=== PATIENT | female | born 1970 | race Caucasian/White ===

== ENCOUNTER 2020-07-10 17:49 | Inpatient (IN) | payer OTHER ==
[~2020-07-10] VITALS: Ht 167.6 cm; Wt 89.2 kg
[~2020-07-10 17:49] MED LIST: CYCL10 PO; GABA800 PO; HYDPAM50 PO; Percocet 7.5-31 EACH PO
[2020-07-10 18:05] LABS: PCO2 Venous 55.6 mmHg (38-42); PO2 Venous 64.2 mmHg (38-42); pH Blood Venous 7.37 (7.34-7.37)
[2020-07-10 18:17] LABS: BASOPHILS ABSOLUTE AUTO 0.08 K/mm3 (0.00-0.23); BASOPHILS PERCENT AUTO 1 % (0-2); EOSINOPHILS ABSOLUTE AUTO 0.17 K/mm3 (0.00-0.68); EOSINOPHILS PERCENT AUTO 1 % (0-6); Hematocrit 46.4 % (33.0-51.0); Hemoglobin 15.5 g/dL (11.5-16.0); IMMATURE GRAN ABSOLUTE AUTO 0.13 K/mm3 (0.00-0.10); IMMATURE GRAN PERCENT AUTO 1 % (0-1); LYMPHOCYTES ABSOLUTE AUTO 3.32 K/mm3 (0.84-5.20); LYMPHOCYTES PERCENT AUTO 28 % (21-46); MONOCYTES ABSOLUTE AUTO 0.88 K/mm3 (0.16-1.47); MONOCYTES PERCENT AUTO 7 % (4-13); Mean Corpuscular HGB 32.8 pg (26.0-34.0); Mean Corpuscular HGB Conc 33.4 g/dL (31.5-36.5); Mean Corpuscular Volume 98 fL (80-100); Mean Platelet Volume 9.8 fL (9.1-12.4); NEUTROPHILS ABSOLUTE AUTO 7.51 K/mm3 (1.96-9.15); NEUTROPHILS PERCENT AUTO 62 % (41-73); Platelet Count 233 K/mm3 (150-400); RDW Standard Deviation 46.8 fL (35.1-46.3); Red Blood Cell Count 4.73 M/mm3 (3.80-5.20); White Blood Cell Count 12.09 K/mm3 (4.00-11.30)
[2020-07-10 18:37] LABS: Alanine Aminotransfer (ALT/SGP 113 U/L (12-78); Albumin, Blood 3.8 g/dL (3.4-5.0); Albumin/Globulin Ratio 0.8 (0.8-1.8); Alk Phos 228 U/L (50-136); Anion Gap 2 mmol/L (6-16); Aspartate Aminotrans (AST/SGOT 84 U/L (12-37); Bilirubin, Total 0.4 mg/dL (0.1-1.0); Blood Urea Nitrogen 9 mg/dL (8-24); CO2, Blood 31 mmol/L (21-32); Calcium, Blood 9.1 mg/dL (8.5-10.1); Chloride, Blood 101 mmol/L (98-108); Creatinine, Blood 0.75 mg/dL (0.40-1.00); Globulin, Blood 4.8 g/dL (2.2-4.0); Glomerular Filtration Rate >60 (60-); Glucose, Blood 97 mg/dL (70-99); Potassium, Blood 4.2 mmol/L (3.5-5.5); Sodium, Blood 134 mmol/L (136-145); Total Protein, Blood 8.6 g/dL (6.4-8.2)
[2020-07-10 22:08] LABS: U Amphetamine Screen DETECTED; U Barbituate Screen Not Detected; U Benzodiazapine Screen DETECTED; U Buprenorphine Screen Not Detected; U Cannabinoids Screen Not Detected; U Cocaine Screen Not Detected; U Methadone Screen Not Detected; U Methamphetamine Screen DETECTED; U Opiates Screen Not Detected; U Oxycodone Screen DETECTED; U Phencyclidine Screen Not Detected; U Propoxyphene Screen Not Detected
[2020-07-11] MEDS ORDERED: OXYC15ER PO (00:36)
[2020-07-11 03:47] LABS: BASOPHILS ABSOLUTE AUTO 0.03 K/mm3 (0.00-0.23); BASOPHILS PERCENT AUTO 0 % (0-2); EOSINOPHILS PERCENT AUTO 0 % (0-6); Hematocrit 44.4 % (33.0-51.0); Hemoglobin 14.8 g/dL (11.5-16.0); IMMATURE GRAN ABSOLUTE AUTO 0.18 K/mm3 (0.00-0.10); IMMATURE GRAN PERCENT AUTO 2 % (0-1); LYMPHOCYTES ABSOLUTE AUTO 1.24 K/mm3 (0.84-5.20); LYMPHOCYTES PERCENT AUTO 13 % (21-46); MONOCYTES ABSOLUTE AUTO 0.11 K/mm3 (0.16-1.47); MONOCYTES PERCENT AUTO 1 % (4-13); Mean Corpuscular HGB 32.4 pg (26.0-34.0); Mean Corpuscular HGB Conc 33.3 g/dL (31.5-36.5); Mean Corpuscular Volume 97 fL (80-100); Mean Platelet Volume 10.1 fL (9.1-12.4); NEUTROPHILS ABSOLUTE AUTO 8.15 K/mm3 (1.96-9.15); NEUTROPHILS PERCENT AUTO 84 % (41-73); Platelet Count 222 K/mm3 (150-400); RDW Standard Deviation 46.7 fL (35.1-46.3); Red Blood Cell Count 4.57 M/mm3 (3.80-5.20); White Blood Cell Count 9.71 K/mm3 (4.00-11.30)
[2020-07-11 04:05] LABS: Alanine Aminotransfer (ALT/SGP 102 U/L (12-78); Albumin, Blood 3.7 g/dL (3.4-5.0); Albumin/Globulin Ratio 0.8 (0.8-1.8); Alk Phos 205 U/L (50-136); Anion Gap 4 mmol/L (6-16); Aspartate Aminotrans (AST/SGOT 52 U/L (12-37); Bilirubin, Total 0.3 mg/dL (0.1-1.0); Blood Urea Nitrogen 12 mg/dL (8-24); Bun/Creatinine Ratio 15.8 (12.0-20.0); CO2, Blood 34 mmol/L (21-32); Calcium, Blood 8.8 mg/dL (8.5-10.1); Chloride, Blood 97 mmol/L (98-108); Creatinine, Blood 0.76 mg/dL (0.40-1.00); Globulin, Blood 4.8 g/dL (2.2-4.0); Glomerular Filtration Rate >60 (60-); Glucose, Blood 142 mg/dL (70-99); Sodium, Blood 135 mmol/L (136-145); Total Protein, Blood 8.5 g/dL (6.4-8.2)
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
--- NOTE | 2020-07-11 17:17 | NUR ---
END OF SHIFT SUMMARY: SECURITY TEST ENGINEER WORKING WITH BERNARDINO Brasher ASSUMED CARE FOR PATIENT AROUND 0700. PATIENT IS ALERT AND ORIENTED. SHE HAS BEEN TEARFUL, ANXIOUS, AND AGITATED AT TIMES. 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 PATIENT STATES THAT SHE WAS CLEAN FOR ABOUT 10 YEARS AND SHE RECENTLY RELAPSED AND SHE IS FEELING GUILTY. PATIENT OXYGEN SATURATIONS HAVE BEEN >92% ON RA. PATIENT HAS BEEN MIDLY TACHYCARDIAC TODAY BUT HEART RATE HAS BEEN <110 BPM. SHE HAS BEEN DYSPENIC ON EXERTION BUT STATES THAT SHE IS FEELING BETTER. PATIENT DID HAVE AN ORDER FOR 5MG OF OXYCODONE EVERY 8 HOURS BUT REPORTED THAT SHE TAKES 15MG EVERY 4 HOURS AT HOME. PROVIDER CHANGED ORDER. PATIENT IS RESTING IN BED. CALL LIGHT IS WITHIN REACH AND BED IS IN THE LOWEST POSITION.
--- NOTE | 2020-07-12 04:38 | NUR ---
SHIFT SUMMARY VSS. PATIENT IS ALERT AND ORIENTED. PATIENT BECAME RESTLESS THROUGHOUT THE NIGHT C/O BACK PAIN. PATIENT MEDICATED PER EMAR. SPO2 IN MID 90'S ON 2L VIA NC. NO ACUTE CHANGES OCCURED THROUGHOUT SHIFT. WILL CONTINUE TO MONITOR UNTIL END OF SHIFT.
[2020-07-12] MEDS ORDERED: Acetaminophen325 M1 PO (09:54)
[2020-07-12] MEDS ORDERED: ALBU90OI INH (09:55)
[2020-07-12] MEDS ORDERED: AIRDUO RESPICL1 EAC4 INH (09:57)
[2020-07-12] MEDS ORDERED: IPRAT-ALBUT 0.5-3 ML INH (09:59)
[2020-07-12] MEDS ORDERED: NICO21TP TOP (10:01)
[2020-07-12] MEDS ORDERED: PRED20 PO (10:01)
[2020-07-12] MEDS ORDERED: SPIRIVA RESPIMAT4 G3 INH (10:04)
--- NOTE | 2020-07-12 13:15 | NUR ---
PT DISCHARGED. SHE STATES SHE IS FEELING A LOT BETTER. HER MEDICATION THAT WAS SENT TO PHARMACY AT ADMISSION WAS GIVEN TO HER. THE PATIENT'S FRIEND PICKED HER UP. PT WAS ALERT AND ORIENTED AT DISCHARGE. VERY MINIMAL SHORTNESS OF BREATH WITH EXERTION. PT STATES SHE WILL FOLLOW UP WITH HER PCP. PATIENT VERBALIZED UNDERSTANDING OF INSTRUCTIONS. PT DID NOT HAVE ANY NEW COMPLAINTS AT TIME OF DISCHARGE.
== END 2020-07-12 13:15 | disposition home or self-care (01) | DRG 189 ==
LOC: ER 17:49 → PCU 17:50 → ER 22:45 → PCU 22:45
PROVIDERS: Emergency Medicine; ADMIT Internal Medicine
DX: J96.21 Acute and chronic respiratory failure with hypoxia (principal); J44.1 Chronic obstructive pulmonary disease with (acute) exacerbation; R13.10 Dysphagia, unspecified; Z20.822 Contact with and (suspected) exposure to COVID-19; Z99.81 Dependence on supplemental oxygen; F17.210 Nicotine dependence, cigarettes, uncomplicated; K59.00 Constipation, unspecified; R45.1 Restlessness and agitation; R45.0 Nervousness
CPT/HCPCS: 36415; 71045; 71260; 80053; 82803; 85025; 92610; 93005; 93010; 94640; 94644; 94760; 94762; 96372; 96374; 96375; 96376; 99285-25; A9270; G0378; J1650; J2060; J2930; J7030; Q9967

== ENCOUNTER 2022-05-31 09:14 | Inpatient (IN) | payer OTHER ==
[~2022-05-31] VITALS: Ht 165.1 cm; Wt 81.5 kg
[~2022-05-31 09:14] MED LIST changes: +AIRDUO RESPICL1 EAC4 INH; +ALBU90OI INH; +AMOCLA875 PO; +ANORO ELLIPTA1 EACH INH; +Acetaminophen325 M1 PO; +BACLOFEN10 M4 PO; +BUSP5 PO; +DULOXETINE HCL60 M1 PO; +GUAI600T33 PO; -HYDPAM50 PO; +Hydroxyzine HCl50 MG PO; +IBU800 M1 PO; +IBUP800 PO; +INCRUSE ELPT62.5MCG INH; +IPRAT-ALBUT 0.5-3 ML NEB; +METR500 PO; +NICO21TP TOP; +PRED20 PO; +QUET200 PO; +QUETIAPINE FUM200 M8 PO; +QUETIAPINE FUM300 M1 PO; +ROXICODONE15 MG PO; +SPIRIVA RESPIMAT4 G3 INH; +VISBIOME 112.51 EACH PO; +ZOFRAN4 MG PO; +[UNRECOGNIZED DRUG - CODE] SS
[2022-05-31 09:39] LABS: BASOPHILS ABSOLUTE AUTO 0.08 K/mm3 (0.00-0.23); BASOPHILS PERCENT AUTO 1 % (0-2); EOSINOPHILS ABSOLUTE AUTO 0.28 K/mm3 (0.00-0.68); EOSINOPHILS PERCENT AUTO 3 % (0-6); Hematocrit 42.5 % (33.0-51.0); IMMATURE GRAN ABSOLUTE AUTO 0.04 K/mm3 (0.00-0.10); IMMATURE GRAN PERCENT AUTO 0 % (0-1); LYMPHOCYTES ABSOLUTE AUTO 4.37 K/mm3 (0.84-5.20); LYMPHOCYTES PERCENT AUTO 39 % (21-46); MONOCYTES ABSOLUTE AUTO 1.48 K/mm3 (0.16-1.47); MONOCYTES PERCENT AUTO 13 % (4-13); Mean Corpuscular HGB 32.3 pg (26.0-34.0); Mean Corpuscular HGB Conc 32.9 g/dL (31.5-36.5); Mean Corpuscular Volume 98 fL (80-100); Mean Platelet Volume 9.8 fL (9.1-12.4); NEUTROPHILS PERCENT AUTO 45 % (41-73); Platelet Count 258 K/mm3 (150-400); RDW Coefficient Variation 12.5 % (11.7-14.2); RDW Standard Deviation 45.1 fL (35.1-46.3); Red Blood Cell Count 4.34 M/mm3 (3.80-5.20); White Blood Cell Count 11.35 K/mm3 (4.00-11.30)
[2022-05-31 09:44] LABS: PCO2 Venous 63.4 mmHg (38-42); pH Blood Venous 7.29 (7.34-7.37)
[2022-05-31 09:57] LABS: Bun/Creatinine Ratio 16.4 (12.0-20.0); Calcium, Blood 8.7 mg/dL (8.5-10.1); Creatinine, Blood 0.67 mg/dL (0.40-1.00); Potassium, Blood 3.8 mmol/L (3.5-5.5)
[2022-05-31 13:22] LABS: Base Excess Venous 5.8 mmol/L; Bicarbonate Venous 26.1 mmol/L (24.0-30.0); PCO2 Venous 64.8 mmHg (38-42)
[2022-05-31] MEDS ORDERED: ALPRAZOLAM0.5 M1 PO (13:44)
--- NOTE | 2022-05-31 17:07 | NUR ---
SHIFT SUMMARY PT IS ALERT AND ORIENTATED X4 WITH DYSPNEA AT REST PT ARRIVED TO UNIT VIA GURNEY ON 3L NC. PT IS EXTREMELY ANXIOUS AND EXCITABLE. 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 PT IS MEDICATED WITH DILAUDID FOR "AIR HUNGER" AND ANXIETY. PT REMAINS EXTREMELY ANXIOUS WHILE ON THE BIPAP. BIPAP PERSCRIBED FOR 4 HOURS ON WITH REST. DISCUSSED WITH PROVIDER ABOUT CONTINUING HER PERSCRIBED SEROQUIL AND XANAX, PT WILL REMAIN TO RECIEVE DILAUDID PER EMAR. PT DOES NOT USE CALL LIGHT WELL, AND TRIES TO GET UP WITHOUT ASSISTANCE. ENCOURAGE BIPAP COMPLIANCE. RE-EVAL STATUS IN AM.
--- NOTE | 2022-05-31 17:51 | NUR ---
Pt had 5 second run of SVT per awake overnight monitor, notified Dr Dupont, new orders entered. I have reviewed the nursing unit clerk documentation and am in agreement.
[2022-06-01 04:34] LABS: BASOPHILS ABSOLUTE AUTO 0.02 K/mm3 (0.00-0.23); BASOPHILS PERCENT AUTO 0 % (0-2); EOSINOPHILS PERCENT AUTO 0 % (0-6); Hematocrit 41.2 % (33.0-51.0); Hemoglobin 13.5 g/dL (11.5-16.0); IMMATURE GRAN ABSOLUTE AUTO 0.09 K/mm3 (0.00-0.10); IMMATURE GRAN PERCENT AUTO 1 % (0-1); LYMPHOCYTES ABSOLUTE AUTO 1.01 K/mm3 (0.84-5.20); LYMPHOCYTES PERCENT AUTO 8 % (21-46); MONOCYTES ABSOLUTE AUTO 0.48 K/mm3 (0.16-1.47); MONOCYTES PERCENT AUTO 4 % (4-13); Mean Corpuscular HGB 31.7 pg (26.0-34.0); Mean Corpuscular HGB Conc 32.8 g/dL (31.5-36.5); Mean Corpuscular Volume 97 fL (80-100); Mean Platelet Volume 10.4 fL (9.1-12.4); NEUTROPHILS ABSOLUTE AUTO 11.88 K/mm3 (1.96-9.15); NEUTROPHILS PERCENT AUTO 88 % (41-73); Platelet Count 283 K/mm3 (150-400); RDW Coefficient Variation 12.6 % (11.7-14.2); RDW Standard Deviation 44.5 fL (35.1-46.3); Red Blood Cell Count 4.26 M/mm3 (3.80-5.20); White Blood Cell Count 13.48 K/mm3 (4.00-11.30)
[2022-06-01 04:58] LABS: Albumin, Blood 3.6 g/dL (3.4-5.0); Albumin/Globulin Ratio 0.9 (0.8-1.8); Bilirubin, Total 0.4 mg/dL (0.1-1.0); Bun/Creatinine Ratio 26.6 (12.0-20.0); Calcium, Blood 8.6 mg/dL (8.5-10.1); Creatinine, Blood 0.68 mg/dL (0.40-1.00); Globulin, Blood 3.9 g/dL (2.2-4.0); Total Protein, Blood 7.5 g/dL (6.4-8.2)
--- NOTE | 2022-06-01 06:08 | NUR ---
SHIFT SUMMARY PT IS A&OX4 AND WAS FAIRLY ANXIOUS, BUT COOPERATIVE, AT THE START OF THE SHIFT. THE PT WAS MEDICATED W/ BUSPAR AND DILAUDID AND HAS BEEN LESS ANXIOUS AND COOPERATIVE W/ WEARING THE BIPAP. BIPAP SETTINGS OF 12/7 @ 40%. WHEN THE PT TAKES BREAKS FROM THE BIPAP SHE IS ON 2-3LNC W/ SP02 >90%. PT DID ? SOME SOB AND HAS BEEN RECEIVING PRN BREATHING TX S. SHE DENIES ANGINA AND HAS BEEN SR ON TELE. THE PT WAS ALSO ? BILATERAL HIP PAIN AND HAS BEEN REPOSITIONING FREQUENTLY. NO ACUTE EVENTS. HER BED IS IN LOW, AND CALL LIGHT IS IN REACH. I WILL CONTINUE TO PROVIDE CARE UNTIL SHIFT REPORT IS GIVEN TO THE ONCOMING SHIFT RN. SEE NOTES FOR ANY UPDATES.
--- NOTE | 2022-06-01 07:00 | NUR ---
AM NOTE. PT APPEARS TO BE CALM AND RESTING. COMPLAINTS OF INCREASING ANXIETY AND DESIRE TO WEAR BIPAP, REQUESTING MEDICATION TO HELP WITH ANXIETY. WILL BE MEDICATED AT 0840 AND RESTART BIPAP. PT DENIES CHEST PAIN, DIZZINESS, NAUSEA. PT BECOMES MORE ANXIOUS WITH FURTHER CONVERSATION, WITH INCREASED ERRATIC BEHAIVIOR. *UPDATE* 0840: PT MEDICATED PER CEDRIC FOR "AIR HUNGER" AND AGITATION, BIPAP RESTARTED. PT WAS ABLE TO TOLERATE FOR APPROXIMATELY 5 MIN AND BEGAN TO HAVE A PANIC ATTACK. PT PLACED BACK ON NC AT 3L, DEESCALATED WITH DEEP BREATHING. KASEY PRASAD ATTEMPTED APPROIMATELY 30 MIN LATER WITH SIMILAR RESULTS. PROVIDER NOTIFIED. ATIVAN FOR ANXIETY, VBG. AWAITING VBG RESULTS AND PROVIDER RE-EVAL.
[2022-06-01 10:34] LABS: Base Excess Venous 2.5 mmol/L; Bicarbonate Venous 25.9 mmol/L (24.0-30.0); PCO2 Venous 50.2 mmHg (38-42); pH Blood Venous 7.36 (7.34-7.37)
--- NOTE | 2022-06-01 17:54 | NUR ---
SHIFT SUMMARY PT REMAINED ALERT AND ORIENTATED. PT HAS BEEN DOWNGRADED TO MED STATUS WITHOUT TELE PT IS NO LONGER ON BIPAP AND IS CURRENTLY ON A NC AT 3L. HER HOME MEDS WERE ORDERED TODAY AND SHE HAS BEEN MEDICATED PER EMAR. PT IS LESS ANXIOUS AND FIDGITY. PT DENIES ANY NEEDS AT THIS TIME.
--- NOTE | 2022-06-01 18:06 | NUR ---
Discussed with Dr Dupont home medications, new orders entered. Discussed with Dr quezada anxiety post dilaudid administration, while pt attempting to wear bipap, new orders for stat VBG and ativan. I have reviewed the nursing information systems coordinator documentation and am in agreement.
--- NOTE | 2022-06-02 06:00 | NUR ---
SHIFT SUMMARY PT IS A&OX4 AND HAS HAD MILD ANXIETY THIS SHIFT. SHE CALLS APPROPRIATELY, AND IS COOPERATIVE W/ CARE. AT THE START OF THE SHIFT SHE WAS ON 3LNC AND HAS BEEN TITRATED DOWN TO 1L/RA. SHE DOES HAVE SOME SOB W/ ACTIVITY, AND GETS PRN BREATHING TX. SHE HAS A DRY HACKING COUGH AND WAS STARTED ON GUAIFENESIN. PT DENIES ANGINA AND ANY CHEST PRESSURE; BP STABLE. NO ACUTE EVENTS THIS SHIFT. HER BED IS IN LOW, AND CALL LIGHT IS IN REACH. I WILL CONTINUE TO PROVIDE CARE UNTIL SHIFT REPORT IS GIVEN TO THE ONCOMING SHIFT RN. SEE NOTES FOR ANY UPDATES.
--- NOTE | 2022-06-02 09:14 | NUR ---
REPORT GIVEN TO KASEY WONG TO ASSUME CARE OF PT AT 0900.
[2022-06-02] MEDS ORDERED: Prednisone20 MG PO (10:16)
--- NOTE | 2022-06-02 11:54 | NUR ---
DISCHARGE SUMMARY PATIENT ALERT AND ORIENTED. SBA IN ROOM. VSS AND SPO2 STABLE ABOVE 90% ON ROOM. PASSED HOME O2 EVAL, NO NEED FOR HOME OXYGEN. DISCHARGE ORDER GIVEN. DISCHARGE EDUCATION GIVEN ON STEROID TAPER SENT TO [facility]. PATIENT VERBALIZED UNDERSTANDING OF IMPORTANCE OF FOLLOW UP WITH DR ESTEPHANIA LAMB AND PCP. IV DC'D WNL. PATIENT LEFT UNIT AT 1150 VIA WHEELCHAIR FOR HOME VIA TAXI.
== END 2022-06-02 11:50 | disposition home or self-care (01) | DRG 189 ==
LOC: ER 09:14 → PCU 11:46
PROVIDERS: Student in an Organized Health Care Education/Training Program; ADMIT Internal Medicine
PROC: 5A09357 Assistance with Respiratory Ventilation, Less than 24 Consecutive Hours, Continuous Positive Airway Pressure (ICD-10-PCS; principal; 2022-05-31)
DX: J96.01 Acute respiratory failure with hypoxia (principal); I47.1 Supraventricular tachycardia; E87.1 Hypo-osmolality and hyponatremia; E87.29 Other acidosis; J96.22 Acute and chronic respiratory failure with hypercapnia; F15.10 Other stimulant abuse, uncomplicated; J44.9 Chronic obstructive pulmonary disease, unspecified; F17.210 Nicotine dependence, cigarettes, uncomplicated; F11.10 Opioid abuse, uncomplicated; F31.9 Bipolar disorder, unspecified; I10 Essential (primary) hypertension; R73.9 Hyperglycemia, unspecified; T38.0X5A Adverse effect of glucocorticoids and synthetic analogues, initial encounter; M79.7 Fibromyalgia; M54.9 Dorsalgia, unspecified; G89.4 Chronic pain syndrome; F41.0 Panic disorder [episodic paroxysmal anxiety]; Z79.899 Other long term (current) drug therapy; Z79.891 Long term (current) use of opiate analgesic; Z79.51 Long term (current) use of inhaled steroids; Z79.52 Long term (current) use of systemic steroids; Z79.2 Long term (current) use of antibiotics
CPT/HCPCS: 36415; 71045; 80048; 80053; 82803; 84145; 85025; 93005; 93010; 94640; 94644; 94660; 94664; 94761; 94762; 96374; 96375; 99285-25; A9270; J1170; J1650; J2060; J2930; J3475; J3480; J7512

== ENCOUNTER 2022-07-03 18:18 | Inpatient (IN) | payer OTHER ==
[~2022-07-03] VITALS: Ht 175.3 cm; Wt 84.9 kg
[~2022-07-03 18:18] MED LIST changes: +ALPRAZOLAM0.5 M1 PO; +Prednisone20 MG PO
[2022-07-03 18:48] LABS: BASOPHILS ABSOLUTE AUTO 0.07 K/mm3 (0.00-0.23); BASOPHILS PERCENT AUTO 1 % (0-2); EOSINOPHILS ABSOLUTE AUTO 0.34 K/mm3 (0.00-0.68); EOSINOPHILS PERCENT AUTO 3 % (0-6); Hematocrit 37.5 % (33.0-51.0); Hemoglobin 12.1 g/dL (11.5-16.0); IMMATURE GRAN ABSOLUTE AUTO 0.21 K/mm3 (0.00-0.10); IMMATURE GRAN PERCENT AUTO 2 % (0-1); LYMPHOCYTES ABSOLUTE AUTO 2.62 K/mm3 (0.84-5.20); LYMPHOCYTES PERCENT AUTO 21 % (21-46); MONOCYTES ABSOLUTE AUTO 0.81 K/mm3 (0.16-1.47); MONOCYTES PERCENT AUTO 6 % (4-13); Mean Corpuscular HGB 32.6 pg (26.0-34.0); Mean Corpuscular HGB Conc 32.3 g/dL (31.5-36.5); Mean Corpuscular Volume 101 fL (80-100); Mean Platelet Volume 9.5 fL (9.1-12.4); NEUTROPHILS ABSOLUTE AUTO 8.58 K/mm3 (1.96-9.15); NEUTROPHILS PERCENT AUTO 68 % (41-73); Platelet Count 250 K/mm3 (150-400); RDW Coefficient Variation 13.3 % (11.7-14.2); RDW Standard Deviation 49.4 fL (35.1-46.3); Red Blood Cell Count 3.71 M/mm3 (3.80-5.20); White Blood Cell Count 12.63 K/mm3 (4.00-11.30)
[2022-07-03 19:05] LABS: Albumin, Blood 3.2 g/dL (3.4-5.0); Bilirubin, Total 0.2 mg/dL (0.1-1.0); Bun/Creatinine Ratio 29.7 (12.0-20.0); Calcium, Blood 8.2 mg/dL (8.5-10.1); Creatinine, Blood 0.84 mg/dL (0.40-1.00); Globulin, Blood 3.2 g/dL (2.2-4.0); Potassium, Blood 4.4 mmol/L (3.5-5.5); Total Protein, Blood 6.4 g/dL (6.4-8.2)
[2022-07-03 22:51] VITALS: BP 104/69
[2022-07-03] MEDS ORDERED: HYDHCL25 (23:20)
--- NOTE | 2022-07-03 23:30 | NUR ---
ADMIT NOTE; PT ARRIVES FROM THE ED VIA ED GURNEY. THE PT IS TRANSFERED FROM THE ED GURNEY TO THE HOSPITAL BED VIA SLIDER SHEET. THE PT IS AXO X4, BUT VERY SOFT SPOKEN. THE PT IS ON 4L NC UPON ADMIT, THE PT DENIES ANY SOB. THE PT HAS AZITHROMYCIN INFUSING UPON ADMIT WELL. THE PT IS RESTING IN BED COMFORTABLY WITH NO FURTHER COMPLAINTS AT THIS TIME.
[2022-07-04 03:52] VITALS: BP 122/77
--- NOTE | 2022-07-04 04:12 | NUR ---
SHIFT SUMMARY; NO ACUTE CHANGES OVERNIGHT. THE PT HAS BEEN SLEEPING IN BED SINCE ADMIT. THE PT IS AOX 4 AND A 1 ASSIST TO THE BSC. THE PT USED THE CALL LIGHT APPROPRGetMaid. THE PT IS ON 5L NC WITH O2 SATS RANGING 91-93%. RESPIRATORY JUST DID A PRN BREATHING TREATMENT WITH THE PT AND THAT SEEMED TO HELP A LITTLE BIT. THE PT STATES THAT SHE IS SUPPOSE TO WEAR O2 AT HOME BUT HAS NOT BEEN SHE CAN NOT AFFORD IT. THE PT REPORTED SOME BACK PAIN THIS EVENING, THE PT WAS MEDICATED WITH TORADOL W/ GOOD EFFECT. THE PT DENIES ANY CHEST PAIN/PRESSURE OR N/V. CURRENTLY THE PT IS SLEEPING IN BED WITH THE BED IN THE LOWEST POSITION AND THE CALL LIGHT AT BEDSIDE.
[2022-07-04 07:16] LABS: BASOPHILS ABSOLUTE AUTO 0.04 K/mm3 (0.00-0.23); BASOPHILS PERCENT AUTO 0 % (0-2); EOSINOPHILS PERCENT AUTO 0 % (0-6); Hemoglobin 12.6 g/dL (11.5-16.0); IMMATURE GRAN ABSOLUTE AUTO 0.21 K/mm3 (0.00-0.10); IMMATURE GRAN PERCENT AUTO 2 % (0-1); LYMPHOCYTES PERCENT AUTO 6 % (21-46); MONOCYTES ABSOLUTE AUTO 0.11 K/mm3 (0.16-1.47); MONOCYTES PERCENT AUTO 1 % (4-13); Mean Corpuscular HGB 32.1 pg (26.0-34.0); Mean Corpuscular HGB Conc 32.3 g/dL (31.5-36.5); Mean Corpuscular Volume 99 fL (80-100); Mean Platelet Volume 9.8 fL (9.1-12.4); NEUTROPHILS ABSOLUTE AUTO 13.15 K/mm3 (1.96-9.15); NEUTROPHILS PERCENT AUTO 91 % (41-73); Platelet Count 273 K/mm3 (150-400); Red Blood Cell Count 3.93 M/mm3 (3.80-5.20); White Blood Cell Count 14.41 K/mm3 (4.00-11.30)
[2022-07-04 07:30] VITALS: BP 124/80
[2022-07-04 07:34] LABS: Albumin, Blood 3.1 g/dL (3.4-5.0); Albumin/Globulin Ratio 0.9 (0.8-1.8); Bilirubin, Total 0.3 mg/dL (0.1-1.0); Bun/Creatinine Ratio 36.8 (12.0-20.0); Calcium, Blood 8.6 mg/dL (8.5-10.1); Creatinine, Blood 0.68 mg/dL (0.40-1.00); Globulin, Blood 3.6 g/dL (2.2-4.0); Potassium, Blood 4.8 mmol/L (3.5-5.5); Total Protein, Blood 6.7 g/dL (6.4-8.2)
[2022-07-04 14:47] VITALS: BP 144/91
--- NOTE | 2022-07-04 14:55 | NUR ---
NURSE NOTE THIS RN ASSUMED CARE FROM VANESSA PARKS. NO ACUTE INCIDENTS THUS FAR IN SHIFT.
--- NOTE | 2022-07-04 16:22 | NUR ---
SHIFT SUMMARY PATIENT IS ALERT AND ORIENTED. PATIENT HAS HAD NO ACUTE EVENTS SINCE ASSUMING PATIENT FROM VANESSA PARKS. MEDICATED FOR PAIN ONCE. PATIENT HAS NOT COMPLAINED OF SOB, NAUSEA OR VOMITTING THIS SHIFT. VITAL SIGNS REVIEWED. BED IN LOCKED IN LOWEST POSITION. CALL LIGHT IN PLACE. WILL MONITOR UNTIL SHIFT CHANGE.
[2022-07-04 19:48] VITALS: BP 143/90
[2022-07-05 03:53] VITALS: BP 134/83
--- NOTE | 2022-07-05 03:55 | NUR ---
FRONT LINE SUPERVISOR SUMMARY NO ACUTE EVENTS DURING THIS SHIFT. A&OX4. PATIENT EFFECTIVELY COMMUNICATES NEEDS. RR SLIGHTLY LABORED ON 5L/MIN O2. SPO02 >92% ON 5L; PATIENT'S REPORTED BASELINE IS 2L/MIN O2. PATIENT IS TOLERATING ABO THERAPY. PAIN ASSESSED AND MEDICATED PER EMAR. PATIENT NOTED TO SLEEP THROUGHOUT THE NIGHT WITHOUT ACUTE CONCERNS. BED LOW AND LOCKED. CALL LIGHT WITHIN REACH. THIS RN WILL CONTINUE TO MONITOR.
[2022-07-05 05:06] LABS: BASOPHILS ABSOLUTE AUTO 0.07 K/mm3 (0.00-0.23); BASOPHILS PERCENT AUTO 0 % (0-2); EOSINOPHILS PERCENT AUTO 0 % (0-6); Hematocrit 35.3 % (33.0-51.0); Hemoglobin 11.8 g/dL (11.5-16.0); IMMATURE GRAN ABSOLUTE AUTO 0.56 K/mm3 (0.00-0.10); IMMATURE GRAN PERCENT AUTO 3 % (0-1); LYMPHOCYTES PERCENT AUTO 6 % (21-46); MONOCYTES ABSOLUTE AUTO 0.75 K/mm3 (0.16-1.47); MONOCYTES PERCENT AUTO 3 % (4-13); Mean Corpuscular HGB 32.9 pg (26.0-34.0); Mean Corpuscular HGB Conc 33.4 g/dL (31.5-36.5); Mean Corpuscular Volume 98 fL (80-100); Mean Platelet Volume 9.9 fL (9.1-12.4); NEUTROPHILS ABSOLUTE AUTO 19.45 K/mm3 (1.96-9.15); NEUTROPHILS PERCENT AUTO 88 % (41-73); Platelet Count 274 K/mm3 (150-400); RDW Coefficient Variation 13.2 % (11.7-14.2); RDW Standard Deviation 46.9 fL (35.1-46.3); Red Blood Cell Count 3.59 M/mm3 (3.80-5.20); White Blood Cell Count 22.13 K/mm3 (4.00-11.30)
[2022-07-05 05:34] LABS: Bun/Creatinine Ratio 46.9 (12.0-20.0); Calcium, Blood 8.7 mg/dL (8.5-10.1); Creatinine, Blood 0.66 mg/dL (0.40-1.00); Potassium, Blood 4.6 mmol/L (3.5-5.5)
[2022-07-05 07:55] VITALS: BP 133/84
[2022-07-05 15:01] VITALS: BP 158/95
--- NOTE | 2022-07-05 16:34 | NUR ---
SHIFT SUMMARY PT. PLEASANT AFFECT, COOPERATIVE WITH CARE. AOX4, ABLE TO MAKE NEEDS KNOWN. OXYGEN DOWN TO 2.5LPM; TOLERATING WELL SPO2 >92%, HOME BASELINE IS 2LPM. BED IN LOWEST POSITION, CALL LIGHT WITHIN REACH.
--- NOTE | 2022-07-05 18:41 | NUR ---
PLEASE REFER TO STUDENT NOTE FOR SHIFT SUMMARY.
[2022-07-05 19:23] VITALS: BP 161/90
--- NOTE | 2022-07-06 04:12 | NUR ---
CHROMIUM PLATER SUMMARY NO ACUTE EVENTS THIS SHIFT. A&OX4. PATIENT EFFECTIVELY COMMUNICATES NEEDS. RR EVEN AND SLIGHTLY LABORED ON 3L/MIN O2. SPO2 >92%. VSS. SUPPLEMENTAL O2 INCREASED FROM 2L/MIN TO 3L/MIN AT THE START OF SHIFT DUE TO PATIENT REPORTS OF SOB. NO FURTHER REPORTS OF SOB MADE THIS SHIFT. PAIN ASSESSED AND MEDICATED PER EMAR. PATIENT NOTED TO SLEEP THROUGHOUT THE NIGHT WITHOUT ACUTE CONCERNS. BED LOW AND LOCKED. CALL LIGHT WITHIN REACH. THIS RN WILL CONTINUE TO MONITOR.
[2022-07-06 04:36] VITALS: BP 143/85
[2022-07-06 05:13] LABS: BASOPHILS ABSOLUTE AUTO 0.15 K/mm3 (0.00-0.23); BASOPHILS PERCENT AUTO 1 % (0-2); EOSINOPHILS PERCENT AUTO 0 % (0-6); Hematocrit 36.6 % (33.0-51.0); Hemoglobin 12.2 g/dL (11.5-16.0); IMMATURE GRAN ABSOLUTE AUTO 1.48 K/mm3 (0.00-0.10); IMMATURE GRAN PERCENT AUTO 6 % (0-1); LYMPHOCYTES ABSOLUTE AUTO 1.69 K/mm3 (0.84-5.20); LYMPHOCYTES PERCENT AUTO 7 % (21-46); MONOCYTES ABSOLUTE AUTO 1.08 K/mm3 (0.16-1.47); MONOCYTES PERCENT AUTO 4 % (4-13); Mean Corpuscular HGB 32.4 pg (26.0-34.0); Mean Corpuscular HGB Conc 33.3 g/dL (31.5-36.5); Mean Corpuscular Volume 97 fL (80-100); Mean Platelet Volume 9.9 fL (9.1-12.4); NEUTROPHILS ABSOLUTE AUTO 21.41 K/mm3 (1.96-9.15); NEUTROPHILS PERCENT AUTO 83 % (41-73); Platelet Count 298 K/mm3 (150-400); RDW Coefficient Variation 13.3 % (11.7-14.2); RDW Standard Deviation 47.7 fL (35.1-46.3); Red Blood Cell Count 3.77 M/mm3 (3.80-5.20); White Blood Cell Count 25.81 K/mm3 (4.00-11.30)
[2022-07-06 05:49] LABS: Albumin, Blood 2.9 g/dL (3.4-5.0); Anion Gap 6 mmol/L (6-16); Blood Urea Nitrogen 32 mg/dL (8-24); Bun/Creatinine Ratio 53.3 (12.0-20.0); CO2, Blood 27 mmol/L (21-32); Calcium, Blood 8.5 mg/dL (8.5-10.1); Chloride, Blood 107 mmol/L (98-108); Glomerular Filtration Rate 107 (60-); Glucose, Blood 131 mg/dL (70-99); Phosphorus, Blood 3.8 mg/dL (2.5-4.9); Potassium, Blood 4.4 mmol/L (3.5-5.5); Sodium, Blood 140 mmol/L (136-145)
[2022-07-06 07:39] VITALS: BP 146/92
[2022-07-06 15:27] VITALS: BP 174/97
--- NOTE | 2022-07-06 16:20 | NUR ---
SHIFT SUMMARY PT AWAKE DURING REPORT. A&O, PLEASANT AND CO-OP. UP WITH SBA TO BTHRM. PT LATER UP TO SHOWER. DR SMITH AND DR SANCHES BOTH IN TO SEE PT TODAY. NEW ORDERS PLACED. STEROIDS DECREASED. O2 ALSO DECREASED; PT DOWN TO 1L AT THIS TIME. NO CHANGE IN SAT'S, NO C/O SOB. PT IMPROVING. RESTING QUIETLY AWAKE WITH TV ON. CALL LT IN REACH.
[2022-07-06 21:15] VITALS: BP 143/95
[2022-07-07 05:13] VITALS: BP 146/94
--- NOTE | 2022-07-07 06:37 | NUR ---
SUMMARY: PT A/OX4, CALLS APPROPRIATELY TO SPECIFY NEEDS AND IS PLEASANT AND COOPERATIVE W/CARE. SHE'S REMAINS ON 1L O2 VIA NC W/O S/S RESP DISTRESS ON CONT BIOX. TELE INTACT AND SHE'S BEEN NSR AT 90'S BPM. PT REPORTS NECK AND BACK PAIN, TYLENOL AND TORADOL PRN RECIEVE FOR GOOD AFFECT. PT AWARE OF LIMIATIONS AND IS UP W/SBA. NO ACUTE CHANGES, VSS/AFEBRILE. WCTM AND REPORT TO DAY RN.
[2022-07-07 07:24] VITALS: BP 167/106
--- NOTE | 2022-07-07 12:11 | NUR ---
PATEINT RESTING IN BED, NO DISTRESS, RESPS EVEN AND NONE LABORED, CALL LIGHT WITH IN REACH
[2022-07-07 14:17] LABS: Source, Urine Clean Catch
[2022-07-07 14:21] LABS: Appearance, Urine Hazy (Clear); Bilirubin, Urine Neg (Neg); Blood, Urine Neg (Neg); Glucose Qualitative, Urine Neg (Neg); Ketones, Urine Neg (Neg); Leukocyte Esterase, Urine 2+ (Neg); Nitrite, Urine Neg (Neg); Protein, Urine Neg (Neg); Urobilinogen, Urine NORM (Normal)
[2022-07-07 14:33] LABS: Color, Urine Pale Yellow (P-Yellow)
[2022-07-07 14:35] LABS: Bacteria Many /hpf; Red Blood Cells, Urine Not Seen /hpf (0-2); Squamous Epithelial Cells Mod /hpf (Few)
[2022-07-07] MEDS ORDERED: ALBU2.5V5 INH (15:49)
[2022-07-07] MEDS ORDERED: BENZ100A PO (15:50)
[2022-07-07] MEDS ORDERED: MELATONIN5 M1 PO (15:52)
[2022-07-07] MEDS ORDERED: HYDHCL25 PO (15:52)
[2022-07-07] MEDS ORDERED: PRED20 PO (16:16)
--- NOTE | 2022-07-07 17:27 | NUR ---
DISCHARGE COMPLETELY DONE, WAITING FOR W/C AMBULANCE TO TRANSPORT PATEINT BACK TO [facility], MEDICATIONS FAXED TO [facility], PATEINT VERY ANXIOUS, MEDICATED FOR ANXIETY AT 1600, PATIENT PACEING THE FLOOR WAITING FOR RIDE HOME
--- NOTE | 2022-07-07 18:04 | NUR ---
TRANSPORTATION FOR A DISCHARGE HOME DOES NOT LOOK PROMISING FROM THE [facility] AIDE NOTES, STILL WAITING FOR A CALL BACK, REPORTED TO CASH APPLICATIONS CLERK AND DR SANCHES. PATIENT TO SAY ANOTHER NIGHT IF NEEDED, ORDER TO DISCONTINUE TELE, NO IV NEEDED, AND TORADOL CHANGED TO IM, PATIENTS MEDICAIONS ARE STILL IN THE SYSTEM, RELAYED TO PATIENT, PATIENT VERY DISTRESSED AND CRYING BECAUSE SHE CAN NOT FIND A RIDE O GET HER HOME EITHER, WILL RELAY TO PM RN
--- NOTE | 2022-07-07 20:10 | NUR ---
CALLED PT'S SON AND FRIEND ON THEIR CONTACT LIST AND LEFT MESSAGES RE HOME MEDS LEFT BEHIND, 4 BOTTLES, LABELS READ GABAPENTEN, IBUPROFEN, QUETIAPINE, CYCLOBENZAPRINE. 07/07/221999. PT'S NUMBER STATED NO LONGER IN SERVICE.
== END 2022-07-07 18:47 | disposition home or self-care (01) | DRG 189 ==
LOC: ER 18:18 → MEDS 18:19 → ENPENDDIS 07-07 16:47 → MEDS 07-07 18:09
PROVIDERS: Emergency Medicine; Family Medicine; ADMIT Student in an Organized Health Care Education/Training Program
PROC: 5A09357 Assistance with Respiratory Ventilation, Less than 24 Consecutive Hours, Continuous Positive Airway Pressure (ICD-10-PCS; principal; 2022-07-04)
DX: J96.21 Acute and chronic respiratory failure with hypoxia (principal); J44.1 Chronic obstructive pulmonary disease with (acute) exacerbation; M79.7 Fibromyalgia; G89.29 Other chronic pain; F15.90 Other stimulant use, unspecified, uncomplicated; R13.10 Dysphagia, unspecified; R49.0 Dysphonia; F31.9 Bipolar disorder, unspecified; Z71.51 Drug abuse counseling and surveillance of drug abuser; M54.9 Dorsalgia, unspecified; F17.210 Nicotine dependence, cigarettes, uncomplicated; Z71.6 Tobacco abuse counseling; Z99.81 Dependence on supplemental oxygen; Z79.899 Other long term (current) drug therapy
CPT/HCPCS: 36415; 71045; 80048; 80053; 80069; 81001; 83735; 83880; 84145; 84484; 85025; 87077; 87086; 87186; 93005; 93010; 94640; 94660; 94664; 94761; 94762; 96365; 96372; 96375; 96376; 99285-25; A9270; G0378; J0456; J1650; J1885; J2930; J7050

== ENCOUNTER 2023-06-17 11:00 | Inpatient (IN) | payer OTHER ==
[~2023-06-17] VITALS: Ht 167.6 cm; Wt 82.9 kg
[2023-06-17] VITALS (10 sets, daily range): BP systolic 117–149; BP diastolic 70–132
[~2023-06-17 11:00] MED LIST changes: +ALBU2.5V5 INH; +BENZ100A PO; +HYDHCL25; +HYDHCL25 PO; +IBUP600 PO; +MELATONIN5 M1 PO; +NARCAN4 M1 INH
[2023-06-17] MEDS ORDERED: LORazepam 2 MG/ML 1ML Injection ONE ×2 (11:07→16:10)
[2023-06-17] MEDS ORDERED: Albuterol 2.5 MG/3 ML VIAL INH SCH ×2 (11:10→12:20)
[2023-06-17] MEDS ORDERED: LORazepam 2 MG/ML 1ML Injection IV ONE ×3 (11:10→16:20)
[2023-06-17] MEDS ORDERED: Ipratropium/Albuterol SulF 2.5-0.5MG/3 ML Amp INH ONE (11:10)
[2023-06-17 11:16] LABS: Bicarbonate Venous 19.2 mmol/L (24.0-30.0)
[2023-06-17 11:17] LABS: Base Excess Venous -4.2 mmol/L
[2023-06-17 11:18] LABS: Hematocrit 43.2 % (33.0-51.0); Hemoglobin 13.5 g/dL (11.5-16.0); Mean Corpuscular HGB 31.5 pg (26.0-34.0); Mean Corpuscular HGB Conc 31.3 g/dL (31.5-36.5); Mean Corpuscular Volume 101 fL (80-100); Mean Platelet Volume 10.1 fL (9.1-12.4); Platelet Count 254 K/mm3 (150-400); RDW Coefficient Variation 13.1 % (11.7-14.2); Red Blood Cell Count 4.28 M/mm3 (3.80-5.20); White Blood Cell Count 18.21 K/mm3 (4.00-11.30)
[2023-06-17 11:18] LABS: pH Blood Venous 7.13 (7.34-7.37)
[2023-06-17 11:50] LABS: BASOPHILS PERCENT MAN 0 % (0-2); EOSINOPHILS PERCENT MAN 0 % (0-6); LYMPHOCYTES ABSOLUTE MAN 7.28 K/mm3 (0.84-5.20); LYMPHOCYTES PERCENT MAN 40 % (21-46); MONOCYTES ABSOLUTE MAN 1.27 K/mm3 (0.16-1.47); MONOCYTES PERCENT MAN 7 % (4-13); NEUTROPHILS ABSOLUTE MAN 9.65 K/mm3 (1.96-9.15); SEG NEUTROPHILS PERCENT MAN 53 % (41-73); TOTAL CELLS COUNTED 100
[2023-06-17 12:02] LABS: Albumin, Blood 4.1 g/dL (3.4-5.0); Albumin/Globulin Ratio 1.1 (0.8-1.8); Bilirubin, Total 0.4 mg/dL (0.1-1.0); Bun/Creatinine Ratio 24.1 (12.0-20.0); Calcium, Blood 9.2 mg/dL (8.5-10.1); Creatinine, Blood 0.79 mg/dL (0.40-1.00); Globulin, Blood 3.9 g/dL (2.2-4.0); Magnesium, Blood 2.2 mg/dL (1.6-2.4); Potassium, Blood 4.7 mmol/L (3.5-5.5)
[2023-06-17] MEDS ORDERED: NS 1,000 ML IV SCH ×2 (12:20→14:55)
[2023-06-17] MEDS ORDERED: CefTRIAXone Sodium 1,000 MG in NS 50 ML IV ONE (12:20)
[2023-06-17] MEDS ORDERED: Azithromycin 500 MG in NS 250 ML IV ONE (12:20)
[2023-06-17 12:55] LABS: Base Excess Venous -0.1 mmol/L; Bicarbonate Venous 23.3 mmol/L (24.0-30.0); PCO2 Venous 53.7 mmHg (38-42); pH Blood Venous 7.28 (7.34-7.37)
[2023-06-17] MEDS ORDERED: Ipratropium/Albuterol SulF 2.5-0.5MG/3 ML Amp INH SCH (12:55)
[2023-06-17] MEDS ORDERED: Albuterol 2.5 MG/3 ML VIAL INH PRN (12:55)
[2023-06-17 13:57] LABS: Adenovirus Not Detected (NOT DETECT); Bordetella pertussis Not Detected (NOT DETECT); Chlamydophila pneumoniae Not Detected (NOT DETECT); Coronavirus 229E Not Detected (NOT DETECT); Coronavirus HKU1 Not Detected (NOT DETECT); Coronavirus NL63 Not Detected (NOT DETECT); Coronavirus OC43 Not Detected (NOT DETECT); Human Metapneumovirus Not Detected (NOT DETECT); Human Rhinovirus/Enterovirus Not Detected (NOT DETECT); Influenza A/2009-H1 Not Detected (NOT DETECT); Influenza A/H1 Not Detected (NOT DETECT); Influenza A/H3 Not Detected (NOT DETECT); Influenza B Not Detected (NOT DETECT); Mycoplasma pneumoniae Not Detected (NOT DETECT); Parainfluenza Virus 1 Not Detected (NOT DETECT); Parainfluenza Virus 2 Not Detected (NOT DETECT); Parainfluenza Virus 3 Not Detected (NOT DETECT); Parainfluenza Virus 4 Not Detected (NOT DETECT); Respiratory Syncytial Virus Not Detected (NOT DETECT); SARS-Cov-2 (COVID-19), BioFire Not Detected (NOT DETECT)
[2023-06-17 15:41] LABS: Base Excess Venous -0.9 mmol/L; Bicarbonate Venous 23.6 mmol/L (24.0-30.0); PCO2 Venous 43 mmHg (38-42); pH Blood Venous 7.36 (7.34-7.37)
[2023-06-17] MEDS ORDERED: LORazepam 0.5 MG Tab PO ONE (17:00)
[2023-06-17] MEDS ORDERED: MethylPREDNISolone Sod Succ 125 MG Vial IV SCH (18:00)
[2023-06-17] MEDS ORDERED: HyDROXyzine HCl 25 MG Tab PO PRN (18:35)
--- NOTE | 2023-06-17 18:49 | NUR ---
Admit/ End of shift note. Pt admitted from the ED to ICU2. On arrival, Pt was on BiPAP and requested to stand pivot rather than allowing staff to move her. While transferring beds, she became highly agitated and profoundly tachypneic. MD was at bedside and ordered IV Ativan. Pt was eventually able to relax and calm down. Pt was able to tolerate being off the Bipap for over an hour this evening. Pt was very hungry and drank every option on her clear liquid diet. MD was phoned this evening for nicotine patch, PRN anxiety meds and increase in diet since she has been able to tolerate being off the BiPAP. Pt is able to make needs known, call light is within reach.
[2023-06-17] MEDS ORDERED: Nicotine 14 MG PATCH TOP SCH (19:00)
[2023-06-17 20:15] LABS: U Amphetamine Screen DETECTED; U Barbituate Screen Not Detected; U Benzodiazapine Screen Not Detected; U Buprenorphine Screen DETECTED; U Cannabinoids Screen Not Detected; U Cocaine Screen Not Detected; U Methadone Screen Not Detected; U Methamphetamine Screen DETECTED; U Opiates Screen Not Detected; U Oxycodone Screen Not Detected; U Phencyclidine Screen Not Detected
[2023-06-17] MEDS ORDERED: QUEtiapine Fumarate 200 MG Tab PO SCH (21:00)
[2023-06-17] MEDS ORDERED: QUEtiapine Fumarate 50 MG TAB PO SCH (21:00)
[2023-06-17] MEDS ORDERED: Gabapentin 400 MG Cap PO SCH (21:00)
--- NOTE | 2023-06-17 21:21 | NUR ---
ASSUMPTION OF CARE BEDSIDE SHIFT REPORT RECEIVED FROM DAYSHIFT RN. PT RESTING IN BED, ALERT AND ORIETNED. PT ANSWERS QUESTIONS APPROPRIATELY, FOLLOWS DIRECTION WHEN PROMPTED AND IS ABLE TO MAKE NEEDS KNOWN. PT MOVES EXTREMITIES EQUALLY BILATERALLY. HR 90-100'S SINUS, MAP >65. PT SWITHCES BETWEEN BIPAP AND NC. PT CURRENTLY ON BIPAP 12/6 40%, OXYGEN SATURATION >92%. ABDOMEN SOFT NONTENDER, BOWEL TONES ACTIVE IN ALL FOUR QUADRANTS, PT DENIES N/V. PT UP TO BEDSIDE COMMODE TO VOID WITH MINIMAL ASSISTANCE. PIV IN PLACE TO RFA AND RAC SL. BED IN LOWEST POSITION, CALL LIGHT WIHTIN REACH, CARE CONTINUES.
[2023-06-18] VITALS: BP 100/58
[2023-06-18 00:52] VITALS: BP 121/83
--- NOTE | 2023-06-18 00:56 | NUR ---
PT TRANSFER REPORT GIVEN TO PCU NURSE, PT TRANSFERED TO PCU VIA WHEELCHAIR, ON 4LPM VIA NC, VITAL SIGNS REMAINED STABLE. PT TRANSFERED TO PCU BED WITH SBA. ALL BELONGINGS TRANSFERRED WITH PT.
--- NOTE | 2023-06-18 04:20 | NUR ---
SHIFT SUMMARY PT TRANSFERED FROM ICU TO PCU, ARRIVED AT 0050. SHE IS ALERT & ORIENTED x4, ANXIOUS BUT COOPERATIVE WITH CARES, APPROPRIATE TO SITUATION, CALL LIGHT APPROPRIATE. DENIES PAIN/DISCOMFORT. AFEBRILE, NSR ON TELE. BP STABLE. ON BIPAP 40% FIO2, SP02 > 90%. LUNG SOUNDS DIMINISHED. ABLE TO AMBULATE TO RESTROOM WITH SBA FOR MANAGEMENT OF CORDS, LINES, TELE. DYSPNEA ON EXERTION. NO CHEST PAIN/PRESSURE. SKIN CLEAN, DRY, INTACT. NO ACUTE EVENTS OVERNIGHT.
[2023-06-18 04:57] LABS: BASOPHILS ABSOLUTE AUTO 0.02 K/mm3 (0.00-0.23); BASOPHILS PERCENT AUTO 0 % (0-2); EOSINOPHILS PERCENT AUTO 0 % (0-6); Hematocrit 38.3 % (33.0-51.0); Hemoglobin 12.6 g/dL (11.5-16.0); IMMATURE GRAN ABSOLUTE AUTO 0.13 K/mm3 (0.00-0.10); IMMATURE GRAN PERCENT AUTO 1 % (0-1); LYMPHOCYTES ABSOLUTE AUTO 1.18 K/mm3 (0.84-5.20); LYMPHOCYTES PERCENT AUTO 7 % (21-46); MONOCYTES ABSOLUTE AUTO 0.58 K/mm3 (0.16-1.47); MONOCYTES PERCENT AUTO 3 % (4-13); Mean Corpuscular HGB 31.9 pg (26.0-34.0); Mean Corpuscular HGB Conc 32.9 g/dL (31.5-36.5); Mean Corpuscular Volume 97 fL (80-100); Mean Platelet Volume 10.1 fL (9.1-12.4); NEUTROPHILS ABSOLUTE AUTO 15.88 K/mm3 (1.96-9.15); NEUTROPHILS PERCENT AUTO 89 % (41-73); Platelet Count 209 K/mm3 (150-400); RDW Coefficient Variation 13.2 % (11.7-14.2); RDW Standard Deviation 46.6 fL (35.1-46.3); Red Blood Cell Count 3.95 M/mm3 (3.80-5.20); White Blood Cell Count 17.79 K/mm3 (4.00-11.30)
[2023-06-18 05:24] LABS: Albumin, Blood 3.7 g/dL (3.4-5.0); Bilirubin, Total 0.4 mg/dL (0.1-1.0); Bun/Creatinine Ratio 28.3 (12.0-20.0); Calcium, Blood 9.2 mg/dL (8.5-10.1); Creatinine, Blood 0.67 mg/dL (0.40-1.00); Globulin, Blood 3.7 g/dL (2.2-4.0); Potassium, Blood 4.6 mmol/L (3.5-5.5); Total Protein, Blood 7.4 g/dL (6.4-8.2)
[2023-06-18 07:25] VITALS: BP 128/72
[2023-06-18] MEDS ORDERED: Enoxaparin 40 MG/0.4 ML SYR SC SCH (09:00)
[2023-06-18] MEDS ORDERED: Azithromycin 500 MG in NS 250 ML IV SCH (12:00)
[2023-06-18] MEDS ORDERED: CefTRIAXone Sodium 1,000 MG in NS 100 ML IV SCH (12:00)
[2023-06-18] MEDS ORDERED: Ipratropium/Albuterol SulF 2.5-0.5MG/3 ML Amp INH SCH (13:55)
[2023-06-18 14:58] VITALS: BP 138/90
--- NOTE | 2023-06-18 17:24 | NUR ---
SHIFT SUMMARY: PT ALERT AND ORIENTED X4, ABLE TO FOLLOW COMMANDS AND MAKE NEEDS KNOWN. STRENGTH EQUAL BILATERALLY. COOPERATIVE WITH CARE. ANXIOUS AT TIMES, MEDICATED PER EMAR. PT SLEPT ON AND OFF THIS SHIFT. BP AND HR STABLE. AFEBRILE. SPO2 >92% ON 4L NC. RA AT BASELINE. LUNG SOUNDS COARSE WITH EXP WHEEZE. PT STATES IMPROVEMENT FROM YESERTDAY. PULSES STRONG AND EQUAL THROUGHOUT. ABD SOFT, NON TENDER, BOWEL SOUNDS +. PT SBA TO AND FROM BATHROOM, NO BM. PT STATED THIS AM "TROUBLE SWALLOWING FOOD AT TIMES." MD AWARE, SPEECH THERAPY ORDERED. NOW MED NO TELE STATUS. BED IN LOW, CALL LIGHT IN REACH, WILL REPORT TO ONCOMING RN.
[2023-06-18 19:34] VITALS: BP 142/85
[2023-06-18] MEDS ORDERED: MethylPREDNISolone Sod Succ 125 MG Vial IV SCH (21:00)
[2023-06-19 03:24] VITALS: BP 124/79
[2023-06-19 03:41] LABS: BASOPHILS ABSOLUTE AUTO 0.04 K/mm3 (0.00-0.23); BASOPHILS PERCENT AUTO 0 % (0-2); EOSINOPHILS PERCENT AUTO 0 % (0-6); Hematocrit 35.6 % (33.0-51.0); Hemoglobin 11.6 g/dL (11.5-16.0); IMMATURE GRAN PERCENT AUTO 1 % (0-1); LYMPHOCYTES ABSOLUTE AUTO 1.07 K/mm3 (0.84-5.20); LYMPHOCYTES PERCENT AUTO 5 % (21-46); MONOCYTES ABSOLUTE AUTO 1.04 K/mm3 (0.16-1.47); MONOCYTES PERCENT AUTO 4 % (4-13); Mean Corpuscular HGB 31.9 pg (26.0-34.0); Mean Corpuscular HGB Conc 32.6 g/dL (31.5-36.5); Mean Corpuscular Volume 98 fL (80-100); Mean Platelet Volume 10.2 fL (9.1-12.4); NEUTROPHILS ABSOLUTE AUTO 21.34 K/mm3 (1.96-9.15); NEUTROPHILS PERCENT AUTO 90 % (41-73); Platelet Count 198 K/mm3 (150-400); RDW Coefficient Variation 13.3 % (11.7-14.2); Red Blood Cell Count 3.64 M/mm3 (3.80-5.20); White Blood Cell Count 23.69 K/mm3 (4.00-11.30)
[2023-06-19 04:03] LABS: Bun/Creatinine Ratio 40.7 (12.0-20.0); Calcium, Blood 8.6 mg/dL (8.5-10.1); Creatinine, Blood 0.62 mg/dL (0.40-1.00); Potassium, Blood 4.6 mmol/L (3.5-5.5)
--- NOTE | 2023-06-19 05:27 | NUR ---
1915 Assumed care of pt, bedside report completed. Shift plan of care reviewed and all pt questions answered. 0530 Pt with uneventful shift, VSS and rested well on V60 BiPap overnight for approximately 7.5 hours. Anxiety appears to respond well to PRN doses of Atarax, given x1 thus far this shift. Pt is medical status without tele, continuous pulse oximetry in use. Pt denies significant pain, endorses anxiety in regards to pending transfer to medical floor today. Pt is aware to request PRN anxiety medication Q6hr as needed.
[2023-06-19 07:41] VITALS: BP 143/85
[2023-06-19 16:02] VITALS: BP 148/98
--- NOTE | 2023-06-19 16:58 | NUR ---
SHIFT SUMMARY: PT REMAINS ALERT AND ORIENTED X4, ABLE TO FOLLOW COMMANDS AND MAKE NEEDS KNOWN. COOPERATIVE WITH CARE. ANXIOUS AT TIMES, MEDICATED PER EMAR. BP AND HR STABLE. DENIES CP/PRESSURE. AFEBRILE. SPO2 >92% ON 2L NC. RESPIRATIONS EVEN AND UNLABORED AT REST. PULSES STRONG AND EQUAL THROUGHOUT. ABD SOFT, NON TENDER, BOWEL SOUNDS +. PT SBA TO AND FROM BATHROOM. PT REMAINS MEDICAL STATUS, TRANSFERRING TO ROOM 342, WILL CALL REPORT TO MED RN. PT AWARE. BED IN LOW, CALL LIGHT IN REACH.
--- NOTE | 2023-06-19 18:00 | NUR ---
Pt arrived to 342 via wheelchair from pcu, report obtained, pt is a/ox4, pleasant and cooperative with care, follows commands well, denies pain, states she's doing a lot better, states this happens every yr, lungs have exp wheezing t/o, on 2 liters o2 via n/c, resp even and unlabored, hrr, a bit fast no edema noted, ppp+2, cap refill <3 sec, vs stable, afebrile, piv to rfa site is clear and patent, btx4, abd flat soft nontender, voids without diff, skin c/w/d, maew, chiara, call light in reach.
[2023-06-19 19:31] VITALS: BP 127/79
[2023-06-19] MEDS ORDERED: Ketorolac Tromethamine 15mg Vial IV PRN (21:15)
[2023-06-20 04:25] VITALS: BP 121/73
[2023-06-20 04:38] LABS: BASOPHILS ABSOLUTE AUTO 0.07 K/mm3 (0.00-0.23); BASOPHILS PERCENT AUTO 0 % (0-2); EOSINOPHILS PERCENT AUTO 0 % (0-6); Hematocrit 36.8 % (33.0-51.0); Hemoglobin 11.8 g/dL (11.5-16.0); IMMATURE GRAN ABSOLUTE AUTO 0.58 K/mm3 (0.00-0.10); IMMATURE GRAN PERCENT AUTO 3 % (0-1); LYMPHOCYTES PERCENT AUTO 6 % (21-46); MONOCYTES ABSOLUTE AUTO 0.49 K/mm3 (0.16-1.47); MONOCYTES PERCENT AUTO 3 % (4-13); Mean Corpuscular HGB 31.2 pg (26.0-34.0); Mean Corpuscular HGB Conc 32.1 g/dL (31.5-36.5); Mean Corpuscular Volume 97 fL (80-100); Mean Platelet Volume 10.3 fL (9.1-12.4); NEUTROPHILS ABSOLUTE AUTO 15.61 K/mm3 (1.96-9.15); NEUTROPHILS PERCENT AUTO 88 % (41-73); Platelet Count 214 K/mm3 (150-400); RDW Coefficient Variation 13.2 % (11.7-14.2); RDW Standard Deviation 47.5 fL (35.1-46.3); Red Blood Cell Count 3.78 M/mm3 (3.80-5.20); White Blood Cell Count 17.85 K/mm3 (4.00-11.30)
--- NOTE | 2023-06-20 04:40 | NUR ---
SHIFT SUMMARY PT.IS A&O X4, PLEASANT, COOP WITH CARE. AMBULATES INDEPENDENTLY, EDUCATED ON SAFETY WHEN AMBULATING, EDUCATED TO USE CALL LIGHT FOR 1-PERSON ASSIST WITH FWW. PT. CONTINUES RECEIVING 2L O2 VIA NC. RT. SET UP THE BIPAP FOR THE NIGHT. LS: EXPIRATORY WHEEZES/ UPPER LOBES, DIMINISHED ON LOWER LOBES PER AUSCULTATION. PT. DENIES COUGH/NON NOTED DURING THIS SHIFT.BIOX: 95%. PT.DENIES SOB, N/V, H/A. C/O /10WORST CHRONIC BACK AND NECK PAIN, THIS NURSE CONTACTED UTILITY DRIVER.WILY, ZAID ORDER: TORADOL 15MG IV Q6PRN. GIVEN ORDERED @[facility] (SEE EMAR.) NO ACUTE EVENTS/DISTRESS NOTED/REPORTED DURING THIS SHIFT. BED AT THE LOWEST POSITION, CALL LIGHT IN REACH.WILL HAND OFF TO THE INCOMING SHIFT NURSE.
[2023-06-20 04:59] LABS: Albumin, Blood 3.2 g/dL (3.4-5.0); Albumin/Globulin Ratio 0.9 (0.8-1.8); Bilirubin, Total 0.3 mg/dL (0.1-1.0); Calcium, Blood 8.5 mg/dL (8.5-10.1); Creatinine, Blood 0.7 mg/dL (0.40-1.00); Globulin, Blood 3.5 g/dL (2.2-4.0); Potassium, Blood 4.3 mmol/L (3.5-5.5); Total Protein, Blood 6.7 g/dL (6.4-8.2)
[2023-06-20 07:28] VITALS: BP 139/82
[2023-06-20] MEDS ORDERED: CEFD300 PO (14:07)
[2023-06-20] MEDS ORDERED: VISBIOME 112.51 EACH PO (14:09)
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
== END 2023-06-20 15:13 | disposition home or self-care (01) | DRG 871 ==
LOC: ER 11:00 → PCU 11:01 → ICUE 11:01 → PCU 06-18 00:48 → MEDS 06-19 17:44
PROVIDERS: Student in an Organized Health Care Education/Training Program; ADMIT Internal Medicine
PROC: 3E03329 Introduction of Other Anti-infective into Peripheral Vein, Percutaneous Approach (ICD-10-PCS; principal; 2023-06-18)
PROC: 5A09357 Assistance with Respiratory Ventilation, Less than 24 Consecutive Hours, Continuous Positive Airway Pressure (ICD-10-PCS; 2023-06-18)
DX: A41.9 Sepsis, unspecified organism (principal); J18.9 Pneumonia, unspecified organism; J96.21 Acute and chronic respiratory failure with hypoxia; J96.22 Acute and chronic respiratory failure with hypercapnia; J44.1 Chronic obstructive pulmonary disease with (acute) exacerbation; J44.0 Chronic obstructive pulmonary disease with (acute) lower respiratory infection; Z59.00 Homelessness unspecified; R65.20 Severe sepsis without septic shock; F31.9 Bipolar disorder, unspecified; F15.90 Other stimulant use, unspecified, uncomplicated; F41.9 Anxiety disorder, unspecified; F12.90 Cannabis use, unspecified, uncomplicated; M54.9 Dorsalgia, unspecified; G89.29 Other chronic pain; M79.7 Fibromyalgia; F17.210 Nicotine dependence, cigarettes, uncomplicated; Z79.899 Other long term (current) drug therapy; Z79.51 Long term (current) use of inhaled steroids
CPT/HCPCS: 0202U; 36415; 71045; 80048; 80053; 82803; 83605; 83735; 83880; 84145; 85025; 93005; 93010; 94640; 94645; 94660; 94762; 96361; 96365; 96367; 96372; 96375; 96376; 99285-25; A9270; G0378; J0456; J0696; J1650; J1885; J2060; J2930; J7030; J7050

== ENCOUNTER → 2024-06-08 | Outpatient (CLI) | payer OTHER ==
[~2024-06-08] MED LIST changes: +CEFD300 PO
[2024-06-08 20:43] LABS: Bacterial Vaginosis PCR Positive (NEGATIVE); Candida Group, PCR DETECTED (NOT DETECT); Candida glabrata-krusei, PCR DETECTED (NOT DETECT)
[2024-06-11 15:21] LABS: HIV 1,2 COMBO ANTIGEN/ANTIBODY Negative (Negative)
[2024-06-12 06:39] LABS: APTIMA MEDIA TYPE Urine; C. TRACHOMATIS BY TMA Negative (Negative); N. GONORRHOEAE BY TMA Negative (Negative); SPECIMEN SOURCE Urine
== END ==
LOC: LAB 11:00 → LAB SHORT 11:00
PROVIDERS: Nurse Practitioner Family
DX: Z11.59 Encounter for screening for other viral diseases (principal)
CPT/HCPCS: 81515; 86592; 87389; 87491; 87591

== ENCOUNTER 2024-12-17 13:45 | Emergency (ER) | payer OTHER ==
[~2024-12-17] VITALS: Ht 170.2 cm; Wt 111.1 kg
[~2024-12-17 13:45] MED LIST changes: -ALBU2.5V5 INH; +ALBU2.5V5 NEB; +ASENAPINE MALE2.5 MG SL; +BUPRENORPHINE HC8 MG SL; -HYDHCL25 PO; +IPRAT-ALBUT 0.5-3 ML INH; +LEVFLO500 PO; +NEURONTIN600 MG PO; +NYSTATIN100000 U13 PO; +PRAZOSIN HCL1 M2 PO
[2024-12-17] MEDS ORDERED: LORazepam 2 MG/ML 1ML Injection IV ONE ×2 (13:50→15:50)
[2024-12-17 14:05] LABS: Mean Corpuscular Volume 100 fL (80-100); NRBC Auto 0.3 /100 WBC (0.0-0.2); RDW Coefficient Variation 14.2 % (11.7-14.2)
[2024-12-17 14:22] LABS: Hematocrit 46.3 % (33.0-51.0); Hemoglobin 15.5 g/dL (11.5-16.0); Mean Corpuscular HGB Conc 33.5 g/dL (31.5-36.5); NRBC ABSOLUTE 0.06 K/mm3 (0.00-0.02); Platelet Count 262 K/mm3 (150-400); RDW Standard Deviation 51.0 fL (35.1-46.3)
[2024-12-17] MEDS ORDERED: Ipratropium/Albuterol SulF 2.5-0.5MG/3 ML Amp INH ONE (14:30)
[2024-12-17 14:44] LABS: Alanine Aminotransfer (ALT/SGP 54.0 U/L (12-78); Albumin, Blood 3.5 g/dL (3.4-5.0); Albumin/Globulin Ratio 0.9 (0.8-1.8); Anion Gap 12.0 mmol/L (3-11); Aspartate Aminotrans (AST/SGOT 105.0 U/L (12-37); Bilirubin, Total 1.1 mg/dL (0.1-1.0); Blood Urea Nitrogen 28.0 mg/dL (8-24); CO2, Blood 25.0 mmol/L (21-32); Calcium, Blood 8.7 mg/dL (8.5-10.1); Chloride, Blood 99.0 mmol/L (98-108); Creatinine, Blood 0.96 mg/dL (0.40-1.00); Globulin, Blood 4.1 g/dL (2.2-4.0); Glucose, Blood 95.0 mg/dL (70-99); Potassium, Blood 5.0 mmol/L (3.5-5.5); Sodium, Blood 131.0 mmol/L (136-145); Total Protein, Blood 7.6 g/dL (6.4-8.2)
[2024-12-17 14:52] LABS: BAND PERCENT MAN 2 % (0-8); BASOPHILS ABSOLUTE MAN 0.00 K/mm3 (0.00-0.23); BASOPHILS PERCENT MAN 0 % (0-2); EOSINOPHILS ABSOLUTE MAN 0.00 K/mm3 (0.00-0.68); EOSINOPHILS PERCENT MAN 0 % (0-6); LYMPHOCYTES % ATYPICAL MANUAL 1 % (0-0); LYMPHOCYTES ABSOLUTE MAN 2.78 K/mm3 (0.84-5.20); LYMPHOCYTES PERCENT MAN 12 % (21-46); METAMYELOCYTE ABSOLUTE MAN 0.21 K/mm3 (0.00-0.00); METAMYELOCYTE PERCENT MAN 1 % (0-0); MONOCYTES ABSOLUTE MAN 1.93 K/mm3 (0.16-1.47); MONOCYTES PERCENT MAN 9 % (4-13); MYELOCYTE ABSOLUTE MAN 0.64 K/mm3 (0.00-0.00); MYELOCYTE PERCENT MAN 3 % (0-0); NEUTROPHILS ABSOLUTE MAN 15.88 K/mm3 (1.96-9.15); SEG NEUTROPHILS PERCENT MAN 72 % (41-73)
[2024-12-17 19:30] VITALS: BP 144/99
== END 2024-12-17 19:58 | disposition home or self-care (01) ==
LOC: ER 13:45
PROVIDERS: Emergency Medicine
DX: F15.10 Other stimulant abuse, uncomplicated (principal); J44.9 Chronic obstructive pulmonary disease, unspecified; F17.200 Nicotine dependence, unspecified, uncomplicated; Z99.81 Dependence on supplemental oxygen; Z88.1 Allergy status to other antibiotic agents; Z79.899 Other long term (current) drug therapy
CPT/HCPCS: 71045; 80053; 85025; 93005; 93010; 96374; 96376; 99285-25; J2060